=== PATIENT | female | born 1970 | race Caucasian/White ===

== ENCOUNTER → 2018-03-04 | Day surgery (SDC) | payer OTHER ==
[~2018-03-04] VITALS: Ht 170.2 cm; Wt 94.0 kg
[~2018-03-04] MED LIST: ALBU1AER9 INH; ASPIRIN 325 MG ECTAB PO ONE; ASPIRIN 81 MG CHEW ONE; CALC500C3 PO; FENTANYL CITRATE INJ 50 MCG/1 ML 2 ML VIAL ONE; HEPARIN SOD (PORCINE) 1000 UNIT/ML 10 ML VIAL ONE; LISI-729 PO; MIDAZOLAM HCL 1 MG/ML 2ML VIAL ONE; NITROGLYCERIN/D5W 100MCG/ML 20ML SYR ONE; NiCARDipine HCL INJ 2.5 MG/ML 10 ML AMP ONE; RANI150T85 PO; RIZA5TAB10 PO; SIMV20TA2 PO
[2018-03-04 08:25] VITALS: BP 117/100; PULSE 74; TEMP 36.6; O2SAT 97; Ht 170.2 cm; Wt 94.0 kg
--- NOTE | 2018-03-04 09:28 | History & Physical Bridge Note ---
H&P Re-Evaluation Bridge Note: I have examined the patient, reviewed the History & Physical and in the interval since the performance of the History & Physical I have noted the following changes of clinical significance: No changes noted
--- NOTE | 2018-03-04 09:28 | Pre Sedation Assessment ---
Pre Sedation Assessment General Date of Sedation: Mar 04, 2018. Vital Signs Past 12 Hours Date Time Temp Pulse Resp B/P (MAP) Pulse Ox O2 Delivery O2 Flow Rate FiO2 03/04/18 08:25 36.6 74 14 117/100 (106) 97 Room Air Review Cardiovascular: regular rate, rhythm, no edema, + systolic murmur Lungs: chest non-tender, lungs clear, normal breath sounds Pre-Sedation Airway Assessment Smoking Status: Never Smoker Hx of Sleep Apnea: No Short Thick Neck: No Thyro-mental Distance: > 3 Finger Breadths Oral Cavity: Chipped Teeth, Dental Abnormalities Mallampati Classification: Class II ASA Classification: Class III NPO Status Date of Last Intake of Fluids: Mar 03, 2018 Time of Last Intake of Fluids: 2099 Date of Last Intake of Solids: Mar 03, 2018 Time of Last Intake of Solids: 2099 Procedure Planning Contraindications for Sedation: None Current Medications Reviewed: Yes Notes The planned sedation has been discussed with the patient. Informed Consent was obtained. I have identified the patient, determined the appropriateness of sedation and have assessed the patient immediately prior to the procedure. All medicine(s) and interventions are by my order.
--- NOTE | 2018-03-04 10:14 | Post Sedation Assessment ---
Post Sedation Assessment General Date of Sedation Mar 04, 2018. Vital Signs: Vital Signs Past 12 Hours Date Time Temp Pulse Resp B/P (MAP) Pulse Ox O2 Delivery O2 Flow Rate FiO2 03/04/18 08:25 36.6 74 14 117/100 (106) 97 Room Air Post Procedure Recovery Score Activity: (2) Moves 4 extremities * Respiration: (2) Deep breath/cough Circulation: (2) +/-20% PreAnes Value Consciousness: (2) Fully Awake Oxygen Saturation: (2) > 92% On Room Air Post Anesthesia Score: 10 Discharge Sedation Level of Care: Fast Track Phase II Post Sedation Plan On clinical assessment, the patient appears to have tolerated the sedation without complications. Patient is recovering as anticipated. Patient will continue to be monitored by nursing and may be discharged when sedation discharge criteria are met per below protocol. Upon Completions of procedure and additional 15 minutes continue every 5 minute vital signs and the P.A.R. score; then discharge to a Phase I or Fast Track to Phase II per the following guidelines: * Discharge Patient to appropriate Phase II area if PAR is 8 or greater or return to pre- procedure baseline. The post - procedure orders will be as directed. * If PAR score is less than 8 or not return to pre-procedure baseline then patient will follow Phase I monitoring till PAR is reached for Phase II. The Phase I may be done in procedure room or may call to secure a Phase I area. * If naloxone or flumazenil are used for reversal, hold in Phase I for an additional 60 -120 minutes before discharge to Phase II. Please call the Sedation Physician to re-evaluate and complete post-note for discharge to Phase II area. Do NOT discharge from procedure sedation or Phase 1 until post- sedation evaluation note is complete by procedure /sedation MD Sedation Discharge Instructions to be given to the patient at discharge to home.
--- NOTE | 2018-03-04 10:27 | Cardiac Catheterization ---
Procedure Note Procedure Date Mar 04, 2018. Pre-Procedure Diagnosis Valvular Disease AUC Score 7 Post-Procedure Diagnosis Normal Coronary Arteries Procedure(s) Performed Coronary Angiography Associate Music Professor Dr. Sheppard Spanner Operator(s) Giuliano Allen Estimated Blood Loss 5cc Medication(s) Aspirin, Fentanyl, Heparin, Nicardipine, Nitroglycerin, Versed, Lidocaine 1% Summary of Findings Normal coronary arteries Hemodynamics Rest Ao: 110/94/80 Final Ao: 96/78/63 LV: N/A Recommendations valve replacement Specimens None Radiation Exposure (mGy) 469 Contrast (mls) 70 Anesthesia Moderate sedation. Start 0937. End 1003. Sedation monitor Carolynn KAPOOR. 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 Holding/Recovery ACC Data Cardiac Status Clinical evaluation leading to the procedure CAD Presntation: Stable angina Anginal Classification: CCS II Heart Failure: No Cardiogenic Shock w/in 24Hrs: No Cardiac Arrest w/in 24Hrs: No Imaging studies past 6 months: Yes Stress studies past 6 months: No Coronary Anatomy Dominant: Right Left Main (% Stenosis): Normal LAD (% Stenosis): Normal D1 (% Stenosis): Normal D2 (% Stenosis): Normal Circumflex (% Stenosis): Normal OM1 (% Stenosis): Normal OM2 (% Stenosis): Normal RCA (% Stenosis): Normal R PDA (% Stenosis): Normal R PL1 (% Stenosis): Normal R PL2 (% Stenosis): Normal (3rd RPL branch normal) AM (% Stenosis): Normal Diagnostic Status: Elective Closure Device Percutaneous Entry Location: Radial Closure Device: Radial Band Recommendations: valve replacement Intraprocedure Events Significant Dissection: No Perforation: No
--- NOTE | 2018-03-04 10:30 | Discharge Instructions ---
Discharge Instructions Procedure Procedure Date: Mar 04, 2018. Reason for Visit: Severe Aortic Stenosis *Kopinski To Do*. Discharge Discharge Date: Mar 04, 2018. Discharge Diagnosis: Status post cardiac catheterization Normal coronary arteries Last Recorded Wt (Kilograms): 94 Anesthesia Post Anesthesia Instructions: If you have had General Anesthesia or IV Sedation: * Do not drive today. * Resume driving when surgeon permits. * Do not make important decisions or sign legal documents today. * Call surgeon for: 1. Temperature elevations greater than 101 degrees F. 2. Uncontrollable pain. 3. Excessive bleeding. 4. Persistent nausea and vomiting. 5. Medication intolerance (nausea, vomiting or rash). * For nausea and vomiting use only clear liquids such as: tea, soda, bouillon until nausea subsides, then gradually increase diet as tolerated. * If you have any concerns or questions, call your surgeon's office. If physician is unavailable and it is an emergency, call 911 or go to the nearest emergency room. Instructions Activity Recommendations: limitations as noted below Return to School/Work: with the following limitations Recommended Home Diet: resume previous diet Allergies: Coded Allergies: Amoxicillin (Verified Allergy, Intermediate, HIVES, 01/20/14) Barbiturates (Verified Allergy, Unknown, 01/20/14) Cheese (Verified Allergy, Unknown, "HONDURAN CHEESE", 01/20/14) Ethinyl Estradiol (Verified Allergy, Unknown, "CONTRACEPTIVES", 01/20/14) Ketorolac Tromethamine (Verified Allergy, Unknown, UNKNOWN, 01/20/14) Levonorgestrel (Verified Allergy, Unknown, "CONTRACEPTIVES", 01/20/14) Shrimp (Verified Allergy, Unknown, UNKNOWN, 01/20/14) Squash (Verified Allergy, Unknown, "EGGPLANT", 01/20/14) Sulfacetamide (Verified Allergy, Unknown, 01/20/14) Provider Instructions ACTIVITY RECOMMENDATIONS: Excess manipulation of the wrist should be avoided for the next 24-48 hours. * No lifting over 2 pounds (approximately a 1/2 gallon of milk) with the utilized arm for 24 hours. * No strenuous activity such as bowling or tennis for 3 days. * Keep the site of the procedure covered with a bandage for 24 hours. *You may shower the day after the procedure. Do not take a tub bath or submerge the puncture site in water for the next 3 days. *Do not operate any motorized equipment for 3 days. SPECIAL CARE INSTRUCTIONS: The site may be slightly bruised and sore following your procedure. Should any of the following occur, contact the Dr. who performed your procedure. 1. Redness/inflammation, swelling, chills, or fever, or colored drainage at procedure site within 3-7 days after your procedure. 2. Coldness, discoloration, ongoing numbness, severe pain, or swelling. Expect mild tingling of hand and tenderness at the puncture site for up to three days. If this persists beyond three days, or other symptoms develop, notify the Dr. who performed your procedure. BLEEDING: If the procedure site on your wrist begins to bleed, do not panic 1. Place 1 or 2 fingers firmly just slightly above the insertion site to stop the bleeding. You may be able to feel your pulse as you hold pressure. 2. Lift your finger after 5 minutes to see if the bleeding has stopped. 3. Once the bleeding has stopped, gently wipe the wrist area clean with a bandage. * If the bleeding from your wrist does not stop after 10 minutes, or if there is a large amount of bleeding or spurting, call 911 ([address] drive yourself to the hospital). SKIN IRRITATION: * You may experience some redness and/or swelling in the area where radiation was administered. If any skin irritation occurs, please contact your family physician. FOLLOW UP VISIT: Keep any scheduled doctor appointments. Follow Up Follow-up with: Dr. Clement as scheduled. Cardiothoracic surgery as scheduled. Jn David Recommendations: Call your doctor if: * Temperature above 101 degrees * Pain not relieved by pain medicine ordered * There is increased drainage or redness from any incision * You have any unanswered questions or concerns. Your Doctors Instructions noted above were prepared by provider Percy Sheppard. Patient Signature Section: Patient Instructions Signature Page Opal Figueroa Patient (or Guardian) Signature/Date: I have read and understand the instructions given to me by my caregivers. Caregiver/RN/Doctor Signature/Date: The above-named patient and/or guardian has received patient instructions on this date. + Original Patient Signature Page (only) stays with chart. Please make copy for patient.
[2018-03-04 12:30] VITALS: BP 118/84; PULSE 80; O2SAT 98
== END | disposition home or self-care (01) ==
LOC: C.CATH 08:15
PROVIDERS: ATTEND Internal Medicine Cardiovascular Disease
DX: I35.0 Nonrheumatic aortic (valve) stenosis (principal); I10 Essential (primary) hypertension; Q23.1 Congenital insufficiency of aortic valve; G43.109 Migraine with aura, not intractable, without status migrainosus; E78.5 Hyperlipidemia, unspecified; Z87.442 Personal history of urinary calculi; Z95.5 Presence of coronary angioplasty implant and graft; Z82.49 Family history of ischemic heart disease and other diseases of the circulatory system; Z79.899 Other long term (current) drug therapy